=== PATIENT | male | born 1990 | race African-American/Black ===

== ENCOUNTER 2018-08-14 03:41 | Emergency (ER) | payer SELFPAY ==
--- NOTE | 2018-08-14 08:50 | RAD ---
PORTABLE AP CHEST XRAY: DATE: 08/14/2018. HISTORY: Syncope, witnessed seizure. COMPARISON: 06/15/2013. FINDINGS: There is an electronic device again overlying the medial left mid chest. Lungs are clear. Cardiac s ilhouette and pulmonary vasculature are within normal limits. There has been no interval change from the prior study. IMPRESSION: No acute cardiopulmonary process. POS: [facility]
== END 2018-08-14 04:27 ==
LOC: ERS 03:41
DX: R56.9 Unspecified convulsions (principal); J45.909 Unspecified asthma, uncomplicated; F41.9 Anxiety disorder, unspecified
CPT/HCPCS: 71045; 93005